=== PATIENT | male | born 1995 | race African-American/Black ===

== ENCOUNTER 2018-08-16 19:56 | Emergency (ER) | payer SELFPAY ==
[2018-08-16 20:13] VITALS: BP 132/75; PULSE 103; TEMP 98; BMI 29.1
--- NOTE | 2018-08-16 20:13 | PDOC ---
Rapid Medical Evaluation Time Seen by Provider: 08/16/18 20:11 Medical Evaluation: 08/16/18 20:11 I have performed a brief in-person evaluation of this patient. The patient presents with a chief complaint of: Right lip lac. Pt states a wire fence cut is lip. Bleeding controlled with direct pressure. Last tetanus within 5 years. Lac is passed vermilion border Pertinent physical exam findings: right corner of lip lac/3cm oblique lac I have ordered the followin The patient will proceed to the ED for further evaluation.
--- NOTE | 2018-08-16 21:29 | PDOC ---
History of Present Illness - General Chief Complaint: Laceration Stated Complaint: LACERATION Time Seen by Provider: 08/16/18 20:11 - History of Present Illness Initial Comments: 08/16/18 21:28 I have performed a brief in-person evaluation of this patient. The patient presents with a chief complaint of: Right lip lac. Pt states a wire fence cut is lip. Bleeding controlled with direct pressure. Last tetanus within 5 years. Lac is passed vermilion border Pertinent physical exam findings: right corner of lip lac/3cm oblique lac I have ordered the followin The patient will proceed to the ED for further evaluation. Past History - Past Medical History Allergies/Adverse Reactions: Allergies Allergy/AdvReac Type Severity Reaction Status Date / Time No Known Allergies Allergy Verified 08/16/18 20:13 Home Medications: Ambulatory Orders NK [No Known Home Medication] 08/16/18 COPD: No - Suicide/Smoking/Psychosocial Hx Smoking History: Never smoked *Physical Exam - Vital Signs Last Vital Signs Temp Pulse Resp BP Pulse Ox 98 F 103 H 18 132/75 99 08/16/18 20:10 08/16/18 20:10 08/16/18 20:10 08/16/18 20:10 08/16/18 20:10
--- NOTE | 2018-08-16 21:37 | PDOC ---
History of Present Illness - General Chief Complaint: Laceration Stated Complaint: LACERATION Time Seen by Provider: 08/16/18 20:11 History Source: Patient - History of Present Illness Initial Comments: 08/16/18 21:32 The patient presents with a chief complaint of: Right lip lac. Pt states a wire fence cut is lip. Bleeding controlled with direct pressure. Last tetanus within 5 years. Past History - Past Medical History Allergies/Adverse Reactions: Allergies Allergy/AdvReac Type Severity Reaction Status Date / Time No Known Allergies Allergy Verified 08/16/18 20:13 Home Medications: Ambulatory Orders Amoxicillin/Potassium Clav [Augmentin 875-125 Tablet] 1 each PO BID #10 tablet 08/16/18 Bacitracin - [Bacitracin Topical Ointment -] 1 applic TP BID #14 applic Sodium Chloride 0.9% Irrig [Sodium Chloride 0.9% Irrig. Soln 500 ml] 500 ml IR BID #1 btl 08/16/18 COPD: No - Suicide/Smoking/Psychosocial Hx Smoking History: Never smoked *Physical Exam - Vital Signs Last Vital Signs Temp Pulse Resp BP Pulse Ox 98 F 103 H 18 132/75 99 08/16/18 20:10 08/16/18 20:10 08/16/18 20:10 08/16/18 20:10 08/16/18 20:10 - Physical Exam General Appearance: Yes: Appropriately Dressed, Apparent Distress HEENT: positive: Other (laceration about 2 cm present on right upper lip, crossing the vermilion border, through and through laceration. no active bleed, no foreign particles. ) Procedures - Laceration/Wound Repair Right Upper Anterior Lip Wound Length: to 2.5 cm Wound Explored: no foreign body present Wound's Depth, Shape: into muscle, irregular, flap Irrigated w/ Saline: Yes Betadine Prep: Yes Anesthesia: 1% Lidocaine Wound Debrided: minimal Wound Repaired With: Sutures Suture Size/Type: 5:0, 3:0, nylon, other (catgut) Number of Sutures: 3 Layer Closure: Yes (3) Deep Layer Suture Size/Type: 3:0, gut Number of Deep Layer Sutures: 3 Sterile Dressing Applied: Yes Splint Applied: No Sling Applied: No Medical Decision Making - Medical Decision Making The patient presents with a chief complaint of: Right lip lac. Pt states a wire fence cut is lip. Bleeding controlled with direct pressure. Last tetanus within 5 years. AAP area cleaned and draped. LA given. repair done in 3 layers. inner layer with catgut 3 sutures. middle layer with catgut 4 sutures. outer layer with nylon 5 sutures. white line of lip matched. No bleeding. area cleaned and topical antibiotic applied. Discussed with Dr buchanan patient can be discharged. 08/16/18 21:53 Patient left before ge *DC/Admit/Observation/Transfer Diagnosis at time of Disposition: Laceration of lip Qualifiers: Encounter type: initial encounter Qualified Code(s): S01.511A - Laceration without foreign body of lip, initial encounter - Discharge Dispostion Disposition: HOME Condition at time of disposition: Stable Decision to Admit order: No - Prescriptions Prescriptions: Amoxicillin/Potassium Clav [Augmentin 875-125 Tablet] 1 each PO BID #10 tablet Bacitracin - [Bacitracin Topical Ointment -] 1 applic TP BID #14 applic Sodium Chloride 0.9% Irrig [Sodium Chloride 0.9% Irrig. Soln 500 ml] 500 ml IR BID #1 btl - Referrals - Patient Instructions Printed Discharge Instructions: How to Care for a Laceration After Repair Additional Instructions: Follow up with your pcp Apply topical antibiotic twice a day. Use mouth wash to clean mouth 3 times a day. Take Augmentin twice a day for 5 days. Come after 5 to 7 days for suture removal. claen outer sutures with normal saline twice a day and then apply bacitracin ointment Inner sutures will dissolve itself. If you see a discharge from suture site or develop fever or sutures break come to ER - Post Discharge Activity
--- NOTE | 2018-08-16 21:48 | PDOC ---
Attending Attestation - HPI HPI: 08/16/18 22:09 The patient is a 23-year-old male presents to the emergency department with a laceration. 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 The patient presents with an injury to the R. upper lateral lip, with controlled bleeding with pressure. The patient reports he had his tetanus shot about five years ago. - Medical Decision Making 08/16/18 22:09 Documentation prepared by Magy Chirinos, acting as medical collections representative for Flaca Robins MD. <Magy Chirinos - Last Filed: 08/16/18 22:09> - Resident Resident Name: Arthur Vallejo - ED Attending Attestation I have performed the following: I have examined & evaluated the patient, The case was reviewed & discussed with the resident, I agree w/resident's findings & plan, Exceptions are as noted - Physicial Exam PE: GENERAL: Awake, alert, and fully oriented, in no acute distress HEAD: No signs of trauma EYES: PERRLA, EOMI, sclera anicteric, conjunctiva clear ENT: R face with through and through laceration from the lip into the cheek. + Oozing blood. Auricles normal inspection, hearing grossly normal, nares patent, oropharynx clear without exudates. Moist mucosa EXTREMITIES: Normal range of motion, no edema. No clubbing or cyanosis. No cords, erythema, or tenderness NEUROLOGICAL: Cranial nerves II through XII grossly intact. Normal speech, normal gait SKIN: Warm, Dry, normal turgor. - Medical Decision Making Wound repaired in ED. Stable for DC home. <Flaca Robins - Last Filed: 08/16/18 23:44>
== END 2018-08-16 21:52 | disposition home or self-care (01) ==
LOC: JERFT 19:56
PROC: 0CQ00ZZ Repair Upper Lip, Open Approach (ICD-10-PCS; principal; 2018-08-16)
DX: S01.511A Laceration without foreign body of lip, initial encounter (principal); W26.8XXA Contact with other sharp object(s), not elsewhere classified, initial encounter; Y93.67 Activity, basketball; Y92.310 Basketball court as the place of occurrence of the external cause; Y99.8 Other external cause status
CPT/HCPCS: 99281-25

== ENCOUNTER 2018-09-06 09:55 | Emergency (ER) | payer SELFPAY ==
[2018-09-06 10:11] VITALS: BP 122/66; PULSE 58; TEMP 98; BMI 29.9
--- NOTE | 2018-09-06 10:44 | PDOC ---
Suture Removal/Wound Check HPI - History of Present Illness Chief Complaint: Suture/Staple Removal(Here) Stated Complaint: SUTURE/STAPLE REMOVAL Time Seen by Provider: 09/06/18 10:07 History Source: Yes: Patient Exam Limitations: Yes: No Limitations Treated at: [facility] ED - Previous ED Treatment Type of procedure performed on last visit: Yes: Laceration Repair (5 sutures with multiple internal sutures placed 10 days ago after a full-thickness lip laceration. Patient denies complaints, states is healed well) Tetanus Immunization: Yes: Up to Date Antibiotics Prescribed: Yes Past History - Travel Traveled outside of the country in the last 30 days: No - Past Medical History Allergies/Adverse Reactions: Allergies Allergy/AdvReac Type Severity Reaction Status Date / Time No Known Allergies Allergy Verified 09/06/18 10:05 Home Medications: Ambulatory Orders NK [No Known Home Medication] 09/06/18 COPD: No - Immunization History Immunization Up to Date: Yes - Suicide/Smoking/Psychosocial Hx Smoking History: Never smoked Suture Removal/Wound Check PE - Physical Exam Laceration/Wound Check Symptoms: reports: None Current Severity Level: None Maximum Severity Level: None Pain Localization: None *Review of Systems - Review of Systems Able to Perform ROS?: Yes Constitutional: Yes: Symptoms Reported, See HPI, Malaise Respiratory: No: Symptoms reported Musculoskeletal: Yes: Symptoms Reported All Other Systems: Reviewed and Negative *Physical Exam - Vital Signs Last Vital Signs Temp Pulse Resp BP Pulse Ox 98 F 58 L 16 122/66 100 09/06/18 10:06 09/06/18 10:06 09/06/18 10:06 09/06/18 10:06 09/06/18 10:06 - Physical Exam General Appearance: Yes: Nourished, Appropriately Dressed. 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 Patient tolerated well *DC/Admit/Observation/Transfer Diagnosis at time of Disposition: Visit for suture removal - Discharge Dispostion Disposition: HOME Condition at time of disposition: Stable Decision to Admit order: No - Referrals - Patient Instructions Printed Discharge Instructions: DI for Suture Removal - Post Discharge Activity
== END 2018-09-06 10:41 | disposition home or self-care (01) ==
LOC: JER 09:55 → JERFT 09:55
DX: Z48.817 Encounter for surgical aftercare following surgery on the skin and subcutaneous tissue (principal); Z48.02 Encounter for removal of sutures
CPT/HCPCS: 99281-25